=== PATIENT | male | born 2000 | race Caucasian/White ===

== ENCOUNTER 2021-07-14 19:39 | Emergency (ER) | payer BC, SELFPAY ==
[2021-07-14] MEDS ORDERED: Lidocaine 1%/Epinephrine 1:100K 10 ML VIAL ONE (21:03)
[2021-07-14] MEDS ORDERED: Boostrix 0.5 ML (Tdap) VIAL ONE (21:03)
== END 2021-07-14 21:47 | disposition home or self-care (01) ==
LOC: MADERS 19:39
DX: S01.111A Laceration without foreign body of right eyelid and periocular area, initial encounter (principal); F17.200 Nicotine dependence, unspecified, uncomplicated; W22.8XXA Striking against or struck by other objects, initial encounter; Z23 Encounter for immunization
CPT/HCPCS: 12011; 90471; 90715